=== PATIENT | female | born 1995 | race Caucasian/White ===

== ENCOUNTER 2023-10-28 12:24 | Emergency (ER) | payer BC, SELFPAY ==
[2023-10-28 12:29] VITALS: BP 127/84; BMI 32.4
--- NOTE | 2023-10-28 13:19 | ED.GENMED ---
History of Present Illness
General
Chief Complaint: Problems
Time Seen by Provider: 10/28/23 13:07
History of Present Illness
History of Present Illness:
28-year-old female presents at 8 weeks gestation for intractable vomiting for the past 2 days. She reports lower abdominal pain began last night but did improve today. No vaginal bleeding or discharge. Has not had confirmatory ultrasound as of
yet. No fevers or chills
Review of Systems
Review of Systems
Allergies reviewed?: Yes
All Other Systems: ROS reviewed and negative except as documented in HPI and ROS
Phy Exam
Physical Exam
Physical Exam:
GEN: Well appearing, NAD, WDWN
HEENT: Oral mucosa moist, no scleral icterus
Cardiac: Regular rate
Lung: No respiratory distress, no tachypnea
Abdomen: Soft, nontender
MSK: No gross deformity or injuries
Skin: Good color, no pallor or jaundice, no rashes
Neuro: AO x3, moves all extremities freely
Psych: Calm, cooperative
Course
Orders/Labs/Results
Orders:
Orders
10/28/23 13:12
0.9% Sodium Chloride 1000 ml [Nss] 1,000 ml IV BOLUS
Metoclopramide [Reglan] 10 mg IV NOW STA
US Transvaginal Only Urgent
Reason For Exam: lower abd pain, 8wk preg
10/28/23 13:13
Test Result ONCE
10/28/23 13:17
Beta HCG Quantitative Urgent
Is this a screen?: No
Complete Blood Count/With Diff Urgent
Comprehensive Metabolic Panel Urgent
Abnormal Lab Results
10/28/23
13:17
MCV 80.3 L fL
(81.0-99.0)
MCH 26.2 L pg
(27.0-31.0)
MCHC 32.6 L g/dL
(33.0-37.0)
MPV 10.5 H fL
(7.4-10.4)
Absolute Neuts (auto) 6.9 H 10^3/uL
(1.4-6.5)
Neutrophils % 77.8 H %
(42.2-75.2)
Lymphocytes % 15.3 L %
(20.5-51.1)
AST 39 H U/L
(14-36)
ALT 64 H U/L
(0-35)
10/28/23 13:17
10/28/23 13:17
Vital Signs
Initial and Last Documented VS:
Initial Vital Signs
Temp Pulse Resp BP Pulse Ox
98.2 F 103 16 127/84 99
10/28/23 12:29 10/28/23 12:29 10/28/23 12:29 10/28/23 12:29 10/28/23 12:29
Last Documented Vital Signs
Temp Pulse Resp BP Pulse Ox
98.2 F 75 20 115/74 99
10/28/23 12:29 10/28/23 14:00 10/28/23 14:00 10/28/23 14:00 10/28/23 14:00
Information
Weeks gestation: Weeks: (8)
Location: Location: ([facility])
MDM/Problems Addressed
MDM/Problems Addressed:
Ultrasound obtained to rule out ectopic , patient tolerated IV fluids and antiemetics, will trial a short course of antiemetics on a as needed basis
*Critical Care Note
Total Time (30-74mins, 75-104mins- exclusive of procedures): Not Applicable
ED Attending Note
-
Portions of this chart may have been created with voice recognition software.� Occasional wrong word or��sound alike� substitutions may have occurred due to the inherent limitations of voice recognition software.
Discharge Plan
Departure
Patient Disposition: Home (Routine Discharge)
Date of Disposition: 10/28/23
Time of Disposition: 15:27
Patient with high blood pressure during this ER visit?: No
Discharge Problem:
Nausea and vomiting during
Instructions: Morning Sickness ED
Prescriptions:
New
metoclopramide HCl [Reglan] 10 mg tablet
10 mg PO Q8HPRN PRN (Reason: nausea and vomiting) Qty: 10 0RF
doxylamine-pyridoxine (vit B6) [Diclegis] 10-10 mg tablet,delayed release (DR/EC)
1 tab PO DAILY Qty: 30 0RF
Rx Instructions:
2 tab PO qhs, 1 tab PO qAM prn nausea/vomiting
Referrals:
Keturah Johnson MD [Family Provider] -
Activity Restrictions/Additional Instructions:
Follow-up with your [employer] [facility] [employer] if symptoms persist
Interventions
Interventions:
*Risk Screen - Suicide Last Done: 10/28/23 12:29
*Neglect/Abuse Screening Last Done: 10/28/23 12:29
ED- Fall Risk Assessment Last Done: 10/28/23 12:29
ED-Female Genitourinary Assessment Last Done: 10/28/23 14:30
Discharge Date and Time
Print Language: IRISH
[2023-10-28] MEDS: REGLAN 10 MG IV (13:28)
[2023-10-28] MEDS: NSS 1000 IV (13:32)
[2023-10-28 13:35] LABS: % Basophils 0.7 % (0-2); % Eosinophils 0.3 % (0-6); % Immature Granulocytes 0.3 % (0-0.5); % Lymphocytes 15.3 % (20.5-51.1); % Monocytes 5.6 % (1.7-9.3); % Neutrophils 77.8 % (42.2-75.2); Absolute Basophils 0.1 10^3/uL (0-0.2); Absolute Lymphocytes 1.4 10^3/uL (1.2-3.4); Absolute Monocytes 0.5 10^3/uL (0.1-0.6); Absolute Neutrophils 6.9 10^3/uL (1.4-6.5); Hematocrit 40.8 % (37.0-47.0); Hemoglobin 13.3 g/dL (12.0-16.0); Mean Corp Hgb Conc. 32.6 g/dL (33.0-37.0); Mean Corpuscular Hgb 26.2 pg (27.0-31.0); Mean Corpuscular Volume 80.3 fL (81.0-99.0); Mean Platelet Volume 10.5 fL (7.4-10.4); Nucleated Red Blood Cells % 0 %; Platelet Count 280 10^3/uL (130-400); Red Blood Cell Count 5.08 10^6/uL (4.20-5.40); Red Cell Dist. Width 13.2 % (11.5-14.5); White Blood Cell Count 8.9 10^3/uL (4.8-10.8)
[2023-10-28 13:57] LABS: ALT (SGPT) 64 U/L (0-35); AST (SGOT) 39 U/L (14-36); Albumin 4.3 g/dl (3.5-5.0); Alkaline Phosphatase 116 U/L (38-126); Blood Urea Nitrogen 14 mg/dl (7-17); Calcium 9.8 mg/dl (8.4-10.2); Carbon Dioxide 24 mmol/L (22-30); Chloride 103 mmol/L (98-107); Estimated Creatinine Clearance > 125 ml/min; Glucose 87 mg/dl (70-99); Potassium 4.2 mmol/L (3.5-5.1); Sodium 137 mmol/L (135-145); Total Bilirubin 0.7 mg/dl (0.2-1.3); Total Protein 7.4 g/dl (6.3-8.2); eGFR > 60.00
[2023-10-28 14:00] VITALS: BP 115/74
[2023-10-28 15:29] VITALS: BP 113/78
[2023-10-28 15:41] VITALS: BP 113/78
== END 2023-10-28 15:41 | disposition home or self-care (01) ==
LOC: EMR 12:24
PROVIDERS: Physician Assistant; EMERGENCY PHYSICIAN Emergency Medicine; FAMILY PHYSICIAN Family Medicine
DX: O21.9 Vomiting of pregnancy, unspecified (principal); Z3A.08 8 weeks gestation of pregnancy
CPT/HCPCS: 99284; 96374; 96361; 76817; 80053; 84702; 85025